=== PATIENT | male | born 1945 | race Caucasian/White ===

== ENCOUNTER → 2016-10-13 | Outpatient (CLI) | payer MEDICARE ==
[2016-10-13 13:03] LABS: MEAN CORPUSCULAR HEMOGLOBIN 32.9 pg (27.0-33.0); MEAN CORPUSCULAR HGB CONC 33.9 g/dl (32.0-36.5); WHITE BLOOD COUNT 5.5 K/mm3 (4.0-10.0)
== END ==
LOC: M WUC 08:35
PROVIDERS: ATTEND Internal Medicine Hematology & Oncology
DX: D64.9 Anemia, unspecified (principal)

== ENCOUNTER → 2016-12-12 | Outpatient (REF) | payer MEDICARE ==
[2016-12-12 13:23] LABS: ALBUMIN 3.8 GM/DL (3.2-5.2); ALBUMIN/GLOBULIN RATIO 1.27 (1.00-1.93); BILIRUBIN,TOTAL 0.6 MG/DL (0.2-1.0); CALCIUM LEVEL 9.3 MG/DL (8.8-10.2); CREATININE FOR GFR 1.54 MG/DL (0.70-1.30); GLOMERULAR FILTRATION RATE 47.5 (>42); TOTAL PROTEIN 6.8 GM/DL (6.4-8.2); WHITE BLOOD COUNT 6.2 K/mm3 (4.0-10.0)
[2016-12-12 13:24] LABS: MEAN CORPUSCULAR HEMOGLOBIN 34.6 pg (27.0-33.0); MEAN CORPUSCULAR HGB CONC 35.8 g/dl (32.0-36.5); MEAN CORPUSCULAR VOLUME 96.5 fl (80.0-96.0); RED CELL DISTRIBUTION WIDTH 12.3 % (11.5-14.5)
[2016-12-12 13:30] LABS: POTASSIUM SERUM 5.4 MEQ/L (3.5-5.1)
== END ==
LOC: M LABDRWAD 12:21
PROVIDERS: ATTEND Internal Medicine Gastroenterology
DX: D64.9 Anemia, unspecified (principal); K59.00 Constipation, unspecified; E11.9 Type 2 diabetes mellitus without complications; E55.9 Vitamin D deficiency, unspecified; E56.9 Vitamin deficiency, unspecified; K62.1 Rectal polyp

== ENCOUNTER 2023-04-16 13:12 | Inpatient (IN) | payer MEDICARE ==
[~2023-04-16] VITALS: Ht 188 cm; Wt 123.5 kg
[2023-04-16 13:57] LABS: BASO % 0.2 % (0.0-1.0); EOS # 0.1 10^3/uL (0.0-0.5); EOS % 0.4 % (0.0-3.0); HEMATOCRIT 26.3 % (42.0-52.0); HEMOGLOBIN 9.1 g/dl (13.5-17.5); LYMPH # 1.3 10^3/uL (1.5-5.0); LYMPH % 10.6 % (24.0-44.0); MEAN CORPUSCULAR HGB CONC 34.6 g/dl (32.0-36.5); MEAN CORPUSCULAR VOLUME 95.3 fl (80.0-96.0); MONO # 1.5 10^3/uL (0.0-0.8); MONO % 12.9 % (2.0-8.0); NEUTROPHILS # 8.8 10^3/uL (1.5-8.5); NEUTROPHILS % 74.5 % (36.0-66.0); PLATELET COUNT, AUTOMATED 332 10^3/uL (150-450); RED BLOOD COUNT 2.76 10^6/uL (4.30-6.10); WHITE BLOOD COUNT 11.8 10^3/uL (4.0-10.0)
[2023-04-16] MEDS: METOPROLOL 5 MG/5 ML VIAL IV SCH ×4 (14:00→14:30)
[2023-04-16] MEDS ORDERED: ISOVUE-370 76% 100ML VIAL As Ordered ONE (14:01)
[2023-04-16 14:08] LABS: INR 1.69; PROTHROMBIN TIME 19.3 SECONDS (12.5-14.5)
[2023-04-16] MEDS ORDERED: NS 500 ML IV ONE (14:10)
[2023-04-16 14:13] LABS: PARTIAL THROMBOPLASTIN TIME 31.4 SECONDS (24.8-34.2)
[2023-04-16 14:24] LABS: LIPASE 46 U/L (12-53)
[2023-04-16 14:27] LABS: ALBUMIN 2.5 G/DL (3.2-5.2); ALKALINE PHOSPHATASE 134 U/L (46-116); ALT/SGPT 157 U/L (7.0-40); AST/SGOT 128 U/L (<34); BILIRUBIN,DIRECT 0.7 MG/DL (<0.4); BILIRUBIN,TOTAL 1.9 MG/DL (0.3-1.2); BLOOD UREA NITROGEN 29 MG/DL (9-23); CALCIUM LEVEL 8.1 MG/DL (8.3-10.6); CARBON DIOXIDE LEVEL 24 MMOL/L (20-31); CHLORIDE LEVEL 100 MMOL/L (98-107); CK-MB VALUE MASS < 1.0 NG/ML (<3.6); CPK CREATINE PHOSPHOKINASE 45 U/L (46-171); CREATININE FOR GFR 1.53 MG/DL (0.70-1.30); GLUCOSE, FASTING 304 MG/DL (74-106); MAGNESIUM LEVEL 1.9 MG/DL (1.8-2.4); MB/CK RELATIVE INDEX 2.22 (< OR =4); POTASSIUM SERUM 3.8 MMOL/L (3.5-5.1); SODIUM LEVEL 132 MMOL/L (136-145); TOTAL PROTEIN 5.3 G/DL (5.7-8.2)
[2023-04-16 14:30] LABS: FREE T4 1.43 NG/DL (0.89-1.76); THYROID STIMULATING HORMONE 1.882 uIU/ML (0.55-4.78)
[2023-04-16 14:40] LABS: RSV AMPLIFICATION NEGATIVE (NEGATIVE)
[2023-04-16] MEDS ORDERED: DIGOXIN INJ 0.5 MG/2 ML AMP IV STA (15:45)
[2023-04-16 16:05] LABS: CK-MB VALUE MASS < 1.0 NG/ML (<3.6)
[2023-04-16 16:06] LABS: CPK CREATINE PHOSPHOKINASE 48 U/L (46-171); MB/CK RELATIVE INDEX 2.08 (< OR =4)
[2023-04-16] MEDS ORDERED: MED REC IN PROGRESS XX SCH (16:45)
[2023-04-16] MEDS ORDERED: ACETAMINOPHEN TAB 650MG DOSE (2X325MG) PO PRN (17:10)
[2023-04-16] MEDS ORDERED: MOM 30ML SUSPENSION UDC PO PRN (17:10)
[2023-04-16] MEDS ORDERED: MAALOX 30 ML SUSP *UDC PO PRN (17:10)
[2023-04-16] MEDS ORDERED: GLUCOSE 4GM CHEW TABLET PO PRN (17:30)
[2023-04-16] MEDS ORDERED: DEXTROSE 50% 50ML SYRINGE IV PRN (17:30)
[2023-04-16] MEDS ORDERED: GLUCAGON INJ 1MG VIAL SC PRN (17:30)
[2023-04-16] MEDS ORDERED: ATOR1TAB21 PO (18:33)
[2023-04-16] MEDS ORDERED: HUMA100I5 SQ (18:33)
[2023-04-16] MEDS ORDERED: LANTINJ4 SQ (18:33)
[2023-04-16] MEDS ORDERED: ISOS1TAB35 PO (18:33)
[2023-04-16] MEDS ORDERED: GLIP5TAB17 PO (18:33)
[2023-04-16] MEDS ORDERED: XARE10TA PO (18:33)
[2023-04-16] MEDS ORDERED: SEMA0.257 SQ (18:33)
[2023-04-16] MEDS ORDERED: DIGO0.253 PO (18:36)
[2023-04-16] MEDS ORDERED: METO1TAB33 PO (18:36)
[2023-04-16] MEDS ORDERED: IRBE75TA11 PO (18:36)
[2023-04-16] MEDS ORDERED: OMEP-173 PO (18:36)
[2023-04-16] MEDS ORDERED: ACET-1349 PO (18:37)
[2023-04-16] MEDS ORDERED: COLA100C5 PO (18:38)
[2023-04-16] MEDS ORDERED: HOME MED LIST COMPLETE! XX SCH (18:45)
[2023-04-16] MEDS: RIVAROXABAN 15MG TAB (XARELTO) PO SCH (18:55)
[2023-04-16] MEDS: INSULIN LISPRO (NovoLOG) PER UNIT SC SCH ×2 (18:55→21:37)
[2023-04-16] MEDS ORDERED: DIGOXIN INJ 0.5 MG/2 ML AMP IV ONE (21:00)
[2023-04-16] MEDS ORDERED: PILL CUTTER 1 EACH XX PRN (22:15)
[2023-04-17 06:30] LABS: BASO % 0.3 % (0.0-1.0); EOS % 0.3 % (0.0-3.0); HEMATOCRIT 25.8 % (42.0-52.0); HEMOGLOBIN 8.9 g/dl (13.5-17.5); LYMPH # 1.3 10^3/uL (1.5-5.0); LYMPH % 12.5 % (24.0-44.0); MEAN CORPUSCULAR HEMOGLOBIN 32.7 pg (27.0-33.0); MEAN CORPUSCULAR HGB CONC 34.5 g/dl (32.0-36.5); MEAN CORPUSCULAR VOLUME 94.9 fl (80.0-96.0); MONO # 1.2 10^3/uL (0.0-0.8); MONO % 11.9 % (2.0-8.0); NEUTROPHILS # 7.3 10^3/uL (1.5-8.5); NEUTROPHILS % 72.8 % (36.0-66.0); PLATELET COUNT, AUTOMATED 329 10^3/uL (150-450); RED BLOOD COUNT 2.72 10^6/uL (4.30-6.10)
[2023-04-17 06:54] LABS: CALCIUM LEVEL 8.1 MG/DL (8.3-10.6); CREATININE FOR GFR 1.53 MG/DL (0.70-1.30); MAGNESIUM LEVEL 1.9 MG/DL (1.8-2.4); POTASSIUM SERUM 4.3 MMOL/L (3.5-5.1)
[2023-04-17] MEDS: INSULIN LISPRO (NovoLOG) PER UNIT SC SCH ×4 (07:30→21:09)
[2023-04-17] MEDS ORDERED: glipiZIDE (GLUCOTROL) 5 MG TAB PO SCH (07:30)
[2023-04-17 07:51] LABS: DIGOXIN LEVEL 1.4 NG/ML (0.8-2.0)
[2023-04-17] MEDS ORDERED: DIGOXIN 0.25 MG TAB PO SCH (09:00)
[2023-04-17] MEDS ORDERED: DIGOXIN 0.125 MG TAB PO SCH (09:00)
[2023-04-17] MEDS: METOPROLOL SUCC (TopROL XL) 100MG *XL* TAB PO SCH (09:29)
[2023-04-17] MEDS: DOCUSATE SODIUM 100MG CAPSULE PO SCH (09:30)
[2023-04-17] MEDS: OMEPRAZOLE 20MG CAP PO SCH (09:30)
[2023-04-17] MEDS: ISOSORBIDE MON. (IMDUR) 30MG XR TAB PO SCH (09:30)
[2023-04-17] MEDS: ATORVASTATIN 20 MG TAB PO SCH (09:30)
[2023-04-17] MEDS: IRBESARTAN 150MG TAB PO SCH (09:31)
[2023-04-17] MEDS ORDERED: AMIODARONE HCL 150 MG in IV 1 EA IV STA (10:24)
[2023-04-17] MEDS ORDERED: HumuLIN R (REGULAR) INSULIN (NovoLIN R) **100U/ML** PER UNIT IV STA (13:35)
[2023-04-17] MEDS ORDERED: AMIODARONE HCL 150 MG in IV 1 EA IV ONE (14:30)
[2023-04-17] MEDS ORDERED: FUROSEMIDE 20MG/2ML VIAL IV ONE (17:00)
[2023-04-17 17:05] VITALS: BP 123/66; TEMP 98.8; O2SAT 97
[2023-04-17] MEDS: RIVAROXABAN 15MG TAB (XARELTO) PO SCH (17:42)
[2023-04-17 18:40] VITALS: BP 135/61
[2023-04-17 20:18] VITALS: BP 127/67; TEMP 98.5; O2SAT 97
[2023-04-17] MEDS: LEVEMIR (INSULIN DETEMIR) 1 UNITS/0.01ML SC SCH (21:09)
[2023-04-17] MEDS ORDERED: LORazepam 2 MG TAB PO PRN (23:40)
[2023-04-18] VITALS: BP 124/66; TEMP 98.6; O2SAT 96
[2023-04-18 04:00] VITALS: BP 136/74; TEMP 98.9; O2SAT 96
[2023-04-18] MEDS ORDERED: INSULIN LISPRO (NovoLOG) PER UNIT SC SCH (07:30)
[2023-04-18 08:14] VITALS: BP 163/97; TEMP 98; O2SAT 95
[2023-04-18 08:37] LABS: BASO % 0.3 % (0.0-1.0); EOS # 0.1 10^3/uL (0.0-0.5); EOS % 0.6 % (0.0-3.0); HEMATOCRIT 27.3 % (42.0-52.0); HEMOGLOBIN 9.4 g/dl (13.5-17.5); LYMPH # 1.6 10^3/uL (1.5-5.0); LYMPH % 13.7 % (24.0-44.0); MEAN CORPUSCULAR HEMOGLOBIN 32.9 pg (27.0-33.0); MEAN CORPUSCULAR HGB CONC 34.4 g/dl (32.0-36.5); MEAN CORPUSCULAR VOLUME 95.5 fl (80.0-96.0); MONO # 1.4 10^3/uL (0.0-0.8); MONO % 12.2 % (2.0-8.0); NEUTROPHILS # 8.1 10^3/uL (1.5-8.5); NEUTROPHILS % 71.2 % (36.0-66.0); PLATELET COUNT, AUTOMATED 375 10^3/uL (150-450); RED BLOOD COUNT 2.86 10^6/uL (4.30-6.10); WHITE BLOOD COUNT 11.4 10^3/uL (4.0-10.0)
[2023-04-18] MEDS: IRBESARTAN 150MG TAB PO SCH (08:39)
[2023-04-18] MEDS: INSULIN LISPRO (NovoLOG) PER UNIT SC SCH ×6 (08:39→21:12)
[2023-04-18] MEDS: THIAMINE 100 MG TAB PO SCH ×2 (08:40→21:11)
[2023-04-18] MEDS: OMEPRAZOLE 20MG CAP PO SCH (08:40)
[2023-04-18] MEDS: ISOSORBIDE MON. (IMDUR) 30MG XR TAB PO SCH (08:40)
[2023-04-18] MEDS: ATORVASTATIN 20 MG TAB PO SCH (08:40)
[2023-04-18] MEDS: METOPROLOL SUCC (TopROL XL) 100MG *XL* TAB PO SCH (08:40)
[2023-04-18] MEDS: MULTIVITAMINS/MINERALS THERAP 1 TAB PO SCH (08:40)
[2023-04-18] MEDS: DOCUSATE SODIUM 100MG CAPSULE PO SCH (08:41)
[2023-04-18] MEDS: DIGOXIN 0.25 MG TAB PO SCH (08:41)
[2023-04-18] MEDS: FOLIC ACID 1MG TAB PO SCH (08:41)
[2023-04-18 09:03] LABS: CALCIUM LEVEL 8.5 MG/DL (8.3-10.6); CREATININE FOR GFR 1.52 MG/DL (0.70-1.30); GLOMERULAR FILTRATION RATE 47.3 (>42); MAGNESIUM LEVEL 1.8 MG/DL (1.8-2.4); POTASSIUM SERUM 4.2 MMOL/L (3.5-5.1)
[2023-04-18] MEDS: LEVEMIR (INSULIN DETEMIR) 1 UNITS/0.01ML SC SCH ×2 (09:36→21:11)
[2023-04-18 11:47] VITALS: BP 127/74; TEMP 97.9; O2SAT 96
[2023-04-18 15:35] VITALS: BP 138/74; TEMP 97.3; O2SAT 96
[2023-04-18] MEDS: RIVAROXABAN 15MG TAB (XARELTO) PO SCH (18:18)
[2023-04-18 19:53] VITALS: BP 141/80; TEMP 98.5; O2SAT 95
[2023-04-19] VITALS (7 sets, daily range): BP systolic 122–146; BP diastolic 67–79; TEMP 97.6–98.4; O2SAT 94–97
[2023-04-19 08:19] LABS: BASO % 0.2 % (0.0-1.0); EOS # 0.1 10^3/uL (0.0-0.5); EOS % 1.2 % (0.0-3.0); HEMATOCRIT 26.3 % (42.0-52.0); HEMOGLOBIN 9.1 g/dl (13.5-17.5); LYMPH # 1.4 10^3/uL (1.5-5.0); LYMPH % 13.6 % (24.0-44.0); MEAN CORPUSCULAR HEMOGLOBIN 32.9 pg (27.0-33.0); MEAN CORPUSCULAR HGB CONC 34.6 g/dl (32.0-36.5); MEAN CORPUSCULAR VOLUME 94.9 fl (80.0-96.0); MONO # 1.2 10^3/uL (0.0-0.8); MONO % 11.6 % (2.0-8.0); NEUTROPHILS # 7.4 10^3/uL (1.5-8.5); NEUTROPHILS % 71.7 % (36.0-66.0); PLATELET COUNT, AUTOMATED 388 10^3/uL (150-450); RED BLOOD COUNT 2.77 10^6/uL (4.30-6.10); WHITE BLOOD COUNT 10.2 10^3/uL (4.0-10.0)
[2023-04-19 08:42] LABS: CALCIUM LEVEL 8.1 MG/DL (8.3-10.6); CREATININE FOR GFR 1.42 MG/DL (0.70-1.30); GLOMERULAR FILTRATION RATE 51.2 (>42); MAGNESIUM LEVEL 1.8 MG/DL (1.8-2.4); POTASSIUM SERUM 3.8 MMOL/L (3.5-5.1)
[2023-04-19] MEDS: ISOSORBIDE MON. (IMDUR) 30MG XR TAB PO SCH (09:05)
[2023-04-19] MEDS: METOPROLOL SUCC (TopROL XL) 100MG *XL* TAB PO SCH (09:06)
[2023-04-19] MEDS: OMEPRAZOLE 20MG CAP PO SCH (09:06)
[2023-04-19] MEDS: IRBESARTAN 150MG TAB PO SCH (09:06)
[2023-04-19] MEDS: MULTIVITAMINS/MINERALS THERAP 1 TAB PO SCH (09:06)
[2023-04-19] MEDS: ATORVASTATIN 20 MG TAB PO SCH (09:06)
[2023-04-19] MEDS: FOLIC ACID 1MG TAB PO SCH (09:06)
[2023-04-19] MEDS: DOCUSATE SODIUM 100MG CAPSULE PO SCH (09:06)
[2023-04-19] MEDS: DIGOXIN 0.25 MG TAB PO SCH (09:06)
[2023-04-19] MEDS: LEVEMIR (INSULIN DETEMIR) 1 UNITS/0.01ML SC SCH ×2 (09:07→20:02)
[2023-04-19] MEDS: INSULIN LISPRO (NovoLOG) PER UNIT SC SCH ×7 (09:07→20:00)
[2023-04-19] MEDS: THIAMINE 100 MG TAB PO SCH ×2 (09:08→20:03)
[2023-04-19] MEDS: RIVAROXABAN 15MG TAB (XARELTO) PO SCH (17:33)
[2023-04-19] MEDS ORDERED: METOPROLOL SUCC (TopROL XL) 50MG **XL** TAB PO SCH (21:00)
[2023-04-20] VITALS (7 sets, daily range): BP systolic 116–140; BP diastolic 64–79; TEMP 97.1–97.9; O2SAT 92–98
[2023-04-20 06:27] LABS: BASO # 0.1 10^3/uL (0.0-0.2); BASO % 0.5 % (0.0-1.0); EOS # 0.2 10^3/uL (0.0-0.5); EOS % 1.3 % (0.0-3.0); HEMATOCRIT 26.2 % (42.0-52.0); HEMOGLOBIN 8.9 g/dl (13.5-17.5); LYMPH # 1.6 10^3/uL (1.5-5.0); LYMPH % 13.5 % (24.0-44.0); MEAN CORPUSCULAR HEMOGLOBIN 32.7 pg (27.0-33.0); MEAN CORPUSCULAR VOLUME 96.3 fl (80.0-96.0); MONO # 1.4 10^3/uL (0.0-0.8); MONO % 12.1 % (2.0-8.0); NEUTROPHILS # 8.1 10^3/uL (1.5-8.5); NEUTROPHILS % 70.5 % (36.0-66.0); PLATELET COUNT, AUTOMATED 408 10^3/uL (150-450); RED BLOOD COUNT 2.72 10^6/uL (4.30-6.10); WHITE BLOOD COUNT 11.5 10^3/uL (4.0-10.0)
[2023-04-20 06:59] LABS: CALCIUM LEVEL 8.4 MG/DL (8.3-10.6); CREATININE FOR GFR 1.54 MG/DL (0.70-1.30); GLOMERULAR FILTRATION RATE 46.6 (>42); MAGNESIUM LEVEL 1.7 MG/DL (1.8-2.4); POTASSIUM SERUM 3.9 MMOL/L (3.5-5.1)
[2023-04-20] MEDS: INSULIN LISPRO (NovoLOG) PER UNIT SC SCH ×4 (08:22→12:16)
[2023-04-20] MEDS: LEVEMIR (INSULIN DETEMIR) 1 UNITS/0.01ML SC SCH (08:23)
[2023-04-20] MEDS: IRBESARTAN 150MG TAB PO SCH (08:23)
[2023-04-20] MEDS: THIAMINE 100 MG TAB PO SCH (08:24)
[2023-04-20] MEDS: MULTIVITAMINS/MINERALS THERAP 1 TAB PO SCH (08:24)
[2023-04-20] MEDS: FOLIC ACID 1MG TAB PO SCH (08:24)
[2023-04-20] MEDS: METOPROLOL SUCC (TopROL XL) 100MG *XL* TAB PO SCH (08:24)
[2023-04-20] MEDS: ATORVASTATIN 20 MG TAB PO SCH (08:24)
[2023-04-20] MEDS: DOCUSATE SODIUM 100MG CAPSULE PO SCH (08:24)
[2023-04-20] MEDS: OMEPRAZOLE 20MG CAP PO SCH (08:24)
[2023-04-20] MEDS: DIGOXIN 0.25 MG TAB PO SCH (08:24)
[2023-04-20] MEDS: ISOSORBIDE MON. (IMDUR) 30MG XR TAB PO SCH (08:24)
[2023-04-20] MEDS ORDERED: MAGNESIUM OXIDE 400MG TAB (MAG-OX) PO SCH (09:00)
[2023-04-20] MEDS ORDERED: SEMAGLUTIDE SC SCH (09:00)
[2023-04-20] MEDS ORDERED: DIGO0.253 PO (14:08)
[2023-04-20] MEDS ORDERED: METOPROLOL SUCC (TopROL XL) 100MG *XL* TAB PO SCH (21:00)
== END 2023-04-20 14:54 | disposition short-term general hospital (02) | DRG 309 ==
LOC: M ED 13:12 → M ED INP 13:13 → OBSVTOIN 04-17 10:25 → M PCU 04-17 14:03
PROVIDERS: ADMIT Student in an Organized Health Care Education/Training Program; ATTEND Student in an Organized Health Care Education/Training Program
PROC: B246ZZZ Ultrasonography of Right and Left Heart (ICD-10-PCS; principal; 2023-04-17)
DX: I48.19 Other persistent atrial fibrillation (principal); N13.30 Unspecified hydronephrosis; I25.10 Atherosclerotic heart disease of native coronary artery without angina pectoris; I12.9 Hypertensive chronic kidney disease with stage 1 through stage 4 chronic kidney disease, or unspecified chronic kidney disease; F10.10 Alcohol abuse, uncomplicated; E78.5 Hyperlipidemia, unspecified; E11.42 Type 2 diabetes mellitus with diabetic polyneuropathy; Z96.651 Presence of right artificial knee joint; Z90.79 Acquired absence of other genital organ(s); Z95.5 Presence of coronary angioplasty implant and graft; Z79.84 Long term (current) use of oral hypoglycemic drugs; Z79.4 Long term (current) use of insulin; Z79.899 Other long term (current) drug therapy; Z91.012 Allergy to eggs; Z20.822 Contact with and (suspected) exposure to COVID-19; E11.65 Type 2 diabetes mellitus with hyperglycemia; D64.9 Anemia, unspecified; N28.1 Cyst of kidney, acquired; N18.9 Chronic kidney disease, unspecified; E11.22 Type 2 diabetes mellitus with diabetic chronic kidney disease; Z66 Do not resuscitate